=== PATIENT | female | born 1940 | race Caucasian/White ===

== ENCOUNTER 2016-03-23 03:07 | Inpatient (IN) | payer OTHER ==
[~2016-03-23] VITALS: Ht 157.5 cm; Wt 102.6 kg
[2016-03-23] VITALS (20 sets, daily range): BP systolic 102–227; BP diastolic 45–157
[~2016-03-23 03:07] MED LIST: ADVAIR 250/501 DISK IH; ESCITALOPRAM OX10 MG PO; FLEXERIL5 MG PO; FUROSEMIDE40 MG PO; HYDROCODON-ACE1 EAC7 PO; LYRICA25 MG PO; METFORMIN HCL850 MG PO; METOPROLOL SUCC25 MG PO; MOTRIN800 MG PO; OMEPRAZOLE20 MG PO; PREDNISONE20 MG PO; PROAIR HFA8.5 GM IH; SIMVASTATIN40 MG PO; TRADJENTA5 MG PO; VALSARTAN320 MG PO; ZYRTEC10 M3 PO
[2016-03-23 03:48] LABS: BASE EXCESS 11.4 mEq/L (-3 to +3); BICARBONATE 36.4 mEq/L (22-26); CARBOXY HGB 3.1 % (0-5); METHEMOGLOBIN 0.5 % (0-1.5); PO2 88 mm Hg (80-100)
[2016-03-23 03:49] LABS: COMMENTS - BLOOD GASES A+C+; DEVICE NC; O2 FLOW 3 L/MIN; PCO2 50 mm Hg (35-45); SITE LR; pH 7.47 (7.35-7.45)
[2016-03-23 03:59] LABS: HEMATOCRIT 31.8 % (36.0-46.0); MCH 25.2 PG (29.0-34.0); MCHC 29.9 G/DL (30.0-36.0); MCV 84.4 FL (83-99); MEAN PLAT.VOLUME 10.7 uM^3 (9.5-12.4); PLATELET COUNT 340 K/uL (156-360); RBC DIS.WIDTH-CV 16.5 % (11.8-14.6); RBC DIS.WIDTH-SD 49.7 % (39-53); RED BLOOD COUNT 3.77 M/uL (3.80-5.20); WHITE BLOOD COUNT 10.3 K/uL (4.1-10.2)
[2016-03-23 04:03] LABS: EOSINOPHIL (%) 1.8 % (0-5); EOSINOPHIL COUNT 0.2 K/uL (0-0.3); IMMATURE GRANULOCYTE (%) 0.2 % (0.0-0.7); IMMATURE GRANULOCYTE COUNT 0.2 K/uL; LYMPHOCYTE COUNT 1.8 K/uL (1.0-2.8); MONOCYTE (%) 8.3 % (3-12); MONOCYTE COUNT 0.9 K/uL (0-0.8); NEUTROPHIL (%) 72.3 % (45-76); NEUTROPHIL COUNT 7.5 K/uL (1.8-6.4)
[2016-03-23 04:11] LABS: CHLORIDE 100 mEq/L (99-109); POTASSIUM 2.9 mEq/L (3.7-5.4); SODIUM 145 mEq/L (136-147)
[2016-03-23 04:14] LABS: GLUCOSE 125 mg/dL (70-99)
[2016-03-23 04:15] LABS: ANION GAP 15 MEQ/L (2-14)
[2016-03-23 04:16] LABS: TOTAL BILIRUBIN 0.7 mg/dL (0.0-1.0)
[2016-03-23 04:17] LABS: ALKALINE PHOSPHATASE 54 IU/L (3-129); GFR ESTIMATE (CALCULATED) > 59 mL/min/
[2016-03-23 04:18] LABS: UREA NITROGEN (BUN) 10 mg/dL (9-23)
[2016-03-23 04:20] LABS: TROP-I INTERPRETATION NEGATIVE; TROPONIN-I 0.02 ng/mL (0.0-0.30)
[2016-03-23 04:21] LABS: LIPASE 30 U/L (1.0-51.0)
[2016-03-23 05:05] LABS: SALICYLATE < 5.0 MG/DL (15-30)
[2016-03-23 06:21] LABS: BASE EXCESS 9.3 mEq/L (-3 to +3); CARBOXY HGB 1.7 % (0-5); METHEMOGLOBIN 0.7 % (0-1.5); PCO2 54 mm Hg (35-45); PO2 85 mm Hg (80-100); pH 7.42 (7.35-7.45)
[2016-03-23 06:22] LABS: CONTINUOUS POS AIRWAY PRESSURE 5 cm H2O; DEVICE 840 MASK; FI02 40 %; MODE SPONT; PRES. SUPPORT 12 CM/H2O; SITE RR; TOTAL RESP RATE 22 resp/min
[2016-03-23 08:55] LABS: INFLUENZA A VIRAL ANTIGEN NEGATIVE; INFLUENZA B VIRAL ANTIGEN NEGATIVE
[2016-03-23 11:04] LABS: METH RESISTANT S AUREUS PCR POSITIVE (NEGATIVE)
[2016-03-23 11:10] LABS: PROBE CHECK PASS
[2016-03-23 17:16] LABS: POINT-OF-CARE METER ID UU14162636
[2016-03-24] VITALS (24 sets, daily range): BP systolic 104–166; BP diastolic 45–91
[2016-03-24 00:33] LABS: BASE EXCESS 8.9 mEq/L (-3 to +3); BICARBONATE 35.1 mEq/L (22-26); CARBOXY HGB 1.3 % (0-5); COMMENTS - BLOOD GASES C+; DEVICE 840; FI02 100 %; MECHANICAL RATE 15 resp/min; METHEMOGLOBIN 1.1 % (0-1.5); MODE AC; PCO2 58 mm Hg (35-45); PEEP 5 CM/H20; PO2 375 mm Hg (80-100); SITE LR; TIDAL VOLUME 450 ML; TOTAL RESP RATE 15 resp/min; pH 7.39 (7.35-7.45)
[2016-03-24 00:52] LABS: POINT-OF-CARE METER ID UU14162636
[2016-03-24 05:35] LABS: HEMATOCRIT 26.2 % (36.0-46.0); MCH 24.8 PG (29.0-34.0); MCHC 29.4 G/DL (30.0-36.0); MCV 84.5 FL (83-99); PLATELET COUNT 262 K/uL (156-360); RBC DIS.WIDTH-SD 51.9 % (39-53); WHITE BLOOD COUNT 10.4 K/uL (4.1-10.2)
[2016-03-24 05:49] LABS: EOSINOPHIL (%) 3.7 % (0-5); EOSINOPHIL COUNT 0.4 K/uL (0-0.3); IMMATURE GRANULOCYTE (%) 0.3 % (0.0-0.7); LYMPHOCYTE COUNT 1.8 K/uL (1.0-2.8); MONOCYTE (%) 8.1 % (3-12); MONOCYTE COUNT 0.8 K/uL (0-0.8); NEUTROPHIL COUNT 7.3 K/uL (1.8-6.4)
[2016-03-24 05:58] LABS: ANION GAP 11 MEQ/L (2-14); CHLORIDE 102 MEQ/L (99-109); GFR ESTIMATE (CALCULATED) > 59 mL/min/; GLUCOSE 96 mg/dL (70-99); POTASSIUM 2.9 MEQ/L (3.7-5.4); SAMPLE HEMOLYSIS CHECK 0; SAMPLE ICTERIC CHECK 0; SAMPLE LIPEMIA CHECK 0; SODIUM 143 MEQ/L (136-147); UREA NITROGEN (BUN) 8 mg/dL (9-23)
[2016-03-24 06:20] LABS: BASE EXCESS 9.1 mEq/L (-3 to +3); BICARBONATE 34.9 mEq/L (22-26); CARBOXY HGB 1.5 % (0-5); COMMENTS - BLOOD GASES C+; DEVICE 840; FI02 50 %; MECHANICAL RATE 15 resp/min; METHEMOGLOBIN 1.6 % (0-1.5); MODE AC+; PCO2 55 mm Hg (35-45); PO2 99 mm Hg (80-100); PRESSURE CONTROL VENTILATION 18 CM H20; SITE LR; TOTAL RESP RATE 31 resp/min; pH 7.41 (7.35-7.45)
[2016-03-24 06:21] LABS: PEEP 5 CM/H20
[2016-03-24 06:23] LABS: POINT-OF-CARE METER ID UU13113748
[2016-03-24 12:37] LABS: POINT-OF-CARE METER ID UU14162636
[2016-03-24 18:14] LABS: POINT-OF-CARE METER ID UU14162636
[2016-03-24 23:35] LABS: CHLORIDE 107 mEq/L (99-109); POTASSIUM 3.1 mEq/L (3.7-5.4); SODIUM 145 mEq/L (136-147)
[2016-03-24 23:37] LABS: GLUCOSE 100 mg/dL (70-99)
[2016-03-24 23:38] LABS: ANION GAP 9 MEQ/L (2-14)
[2016-03-24 23:41] LABS: GFR ESTIMATE (CALCULATED) > 59 mL/min/
[2016-03-24 23:42] LABS: UREA NITROGEN (BUN) 7 mg/dL (9-23)
[2016-03-25] VITALS (27 sets, daily range): BP systolic 112–173; BP diastolic 46–98
[2016-03-25 00:32] LABS: BASE EXCESS 8.2 mEq/L (-3 to +3); BICARBONATE 33.7 mEq/L (22-26); CARBOXY HGB 2.4 % (0-5); COMMENTS - BLOOD GASES C+; DEVICE 840; FI02 40 %; MECHANICAL RATE 15 resp/min; METHEMOGLOBIN 1.4 % (0-1.5); MODE AC/PC; PCO2 52 mm Hg (35-45); PO2 73 mm Hg (80-100); PRESSURE CONTROL VENTILATION 18 CM H20; SITE LR; TOTAL RESP RATE 27 resp/min; pH 7.42 (7.35-7.45)
[2016-03-25 00:33] LABS: PEEP 5 CM/H20
[2016-03-25 06:23] LABS: HEMATOCRIT 28.8 % (36.0-46.0); MCH 24.8 PG (29.0-34.0); MCHC 29.2 G/DL (30.0-36.0); MEAN PLAT.VOLUME 11.1 uM^3 (9.5-12.4); PLATELET COUNT 246 K/uL (156-360); RBC DIS.WIDTH-CV 17.1 % (11.8-14.6); RBC DIS.WIDTH-SD 52.8 % (39-53); RED BLOOD COUNT 3.39 M/uL (3.80-5.20); WHITE BLOOD COUNT 11.3 K/uL (4.1-10.2)
[2016-03-25 06:35] LABS: EOSINOPHIL (%) 4.9 % (0-5); EOSINOPHIL COUNT 0.6 K/uL (0-0.3); IMMATURE GRANULOCYTE (%) 0.3 % (0.0-0.7); LYMPHOCYTE COUNT 1.3 K/uL (1.0-2.8); MONOCYTE (%) 9.6 % (3-12); MONOCYTE COUNT 1.1 K/uL (0-0.8); NEUTROPHIL (%) 73.6 % (45-76); NEUTROPHIL COUNT 8.3 K/uL (1.8-6.4)
[2016-03-25 06:42] LABS: POINT-OF-CARE METER ID UU13113748; POINT-OF-CARE USER ID LABHNS84
[2016-03-25 06:49] LABS: ANION GAP 8 MEQ/L (2-14); CHLORIDE 104 MEQ/L (99-109); GFR ESTIMATE (CALCULATED) > 59 mL/min/; GLUCOSE 123 mg/dL (70-99); POTASSIUM 3.3 MEQ/L (3.7-5.4); SAMPLE HEMOLYSIS CHECK 0; SAMPLE ICTERIC CHECK 0; SAMPLE LIPEMIA CHECK 0; SODIUM 143 MEQ/L (136-147); UREA NITROGEN (BUN) 6 mg/dL (9-23)
[2016-03-25] MEDS ORDERED: LYRICA75 MG PO (15:30)
[2016-03-25] MEDS ORDERED: ADVAIR 250/501 DISK IH (15:30)
[2016-03-25] MEDS ORDERED: METFORMIN HCL850 MG PO (15:31)
[2016-03-25] MEDS ORDERED: LEVOFLOXACIN500 MG PO (15:32)
[2016-03-25] MEDS ORDERED: CYCLOBENZAPRINE5 MG PO (15:33)
[2016-03-25] MEDS ORDERED: FUROSEMIDE40 MG PO (15:34)
[2016-03-25] MEDS ORDERED: SIMVASTATIN40 MG PO (15:34)
[2016-03-25] MEDS ORDERED: IBUPROFEN800 MG PO (15:34)
[2016-03-25] MEDS ORDERED: VENTOLIN HFA18 GM IH (15:37)
[2016-03-25] MEDS ORDERED: OMEPRAZOLE20 MG PO (15:39)
[2016-03-25] MEDS ORDERED: METOPROLOL SUCC25 MG PO (15:39)
[2016-03-25] MEDS ORDERED: VALSARTAN320 MG PO (15:39)
[2016-03-25] MEDS ORDERED: ZYRTEC10 M2 PO (15:40)
[2016-03-25] MEDS ORDERED: ESCITALOPRAM OX10 MG PO (15:40)
[2016-03-25] MEDS ORDERED: TRADJENTA5 MG PO (15:41)
[2016-03-25] MEDS ORDERED: FLEXERIL5 MG PO (15:42)
[2016-03-26] VITALS (25 sets, daily range): BP systolic 129–170; BP diastolic 54–94
[2016-03-26 01:00] LABS: POINT-OF-CARE USER ID LABHNS84
[2016-03-26 06:13] LABS: HEMATOCRIT 30.3 % (36.0-46.0); MCH 24.8 PG (29.0-34.0); MCHC 29.4 G/DL (30.0-36.0); MCV 84.4 FL (83-99); MEAN PLAT.VOLUME 11.8 uM^3 (9.5-12.4); PLATELET COUNT 242 K/uL (156-360); RBC DIS.WIDTH-CV 16.8 % (11.8-14.6); RBC DIS.WIDTH-SD 51.2 % (39-53); RED BLOOD COUNT 3.59 M/uL (3.80-5.20)
[2016-03-26 06:36] LABS: EOSINOPHIL (%) 0.1 % (0-5); IMMATURE GRANULOCYTE (%) 0.5 % (0.0-0.7); LYMPHOCYTE COUNT 0.8 K/uL (1.0-2.8); MONOCYTE (%) 2.6 % (3-12); MONOCYTE COUNT 0.2 K/uL (0-0.8); NEUTROPHIL (%) 87.2 % (45-76)
[2016-03-26 07:05] LABS: ANION GAP 10 MEQ/L (2-14); CHLORIDE 102 MEQ/L (99-109); GFR ESTIMATE (CALCULATED) > 59 mL/min/; POTASSIUM 3.5 MEQ/L (3.7-5.4); SAMPLE HEMOLYSIS CHECK 0; SAMPLE ICTERIC CHECK 0; SAMPLE LIPEMIA CHECK 0; SODIUM 144 MEQ/L (136-147); UREA NITROGEN (BUN) 11 mg/dL (9-23)
[2016-03-26 07:10] LABS: GLUCOSE 216 mg/dL (70-99)
[2016-03-26 07:58] LABS: POINT-OF-CARE METER ID UU13113803
[2016-03-26 11:37] LABS: POINT-OF-CARE METER ID UU13113803
[2016-03-26 17:24] LABS: POINT-OF-CARE METER ID UU13113803
[2016-03-26 23:52] LABS: POINT-OF-CARE METER ID UU13113803; POINT-OF-CARE USER ID LABHNS84
[2016-03-27] VITALS (26 sets, daily range): BP systolic 137–177; BP diastolic 55–90
[2016-03-27 06:19] LABS: POINT-OF-CARE METER ID UU13113731; POINT-OF-CARE USER ID LABHNS84
[2016-03-27 06:24] LABS: HEMATOCRIT 27.2 % (36.0-46.0); MCH 25.3 PG (29.0-34.0); MCHC 30.5 G/DL (30.0-36.0); MCV 82.9 FL (83-99); MEAN PLAT.VOLUME 11.5 uM^3 (9.5-12.4); PLATELET COUNT 259 K/uL (156-360); RBC DIS.WIDTH-CV 16.5 % (11.8-14.6); RBC DIS.WIDTH-SD 50.2 % (39-53); RED BLOOD COUNT 3.28 M/uL (3.80-5.20); WHITE BLOOD COUNT 9.9 K/uL (4.1-10.2)
[2016-03-27 06:45] LABS: EOSINOPHIL (%) 0 % (0-5); IMMATURE GRANULOCYTE (%) 0.4 % (0.0-0.7); LYMPHOCYTE COUNT 1.2 K/uL (1.0-2.8); MONOCYTE (%) 7.6 % (3-12); MONOCYTE COUNT 0.8 K/uL (0-0.8); NEUTROPHIL (%) 80.2 % (45-76); NEUTROPHIL COUNT 7.9 K/uL (1.8-6.4)
[2016-03-27 12:50] LABS: POINT-OF-CARE METER ID UU13113803
[2016-03-27 18:02] LABS: POINT-OF-CARE METER ID UU14162636
[2016-03-28] VITALS (26 sets, daily range): BP systolic 115–160; BP diastolic 49–83
[2016-03-28 01:26] LABS: POINT-OF-CARE METER ID UU13113803
[2016-03-28 05:01] LABS: GFR ESTIMATE (CALCULATED) > 59 mL/min/
[2016-03-28 05:36] LABS: POINT-OF-CARE METER ID UU14162636
[2016-03-28 06:32] LABS: VANCOMYCIN, TROUGH 21.6 MCG/ML (10-20)
[2016-03-28 08:26] LABS: BASE EXCESS 5.3 mEq/L (-3 to +3); BICARBONATE 31.6 mEq/L (22-26); CARBOXY HGB 1.7 % (0-5); COMMENTS - BLOOD GASES A+C+; METHEMOGLOBIN 1.3 % (0-1.5); PCO2 56 mm Hg (35-45); PO2 76 mm Hg (80-100); SITE RR; pH 7.36 (7.35-7.45)
[2016-03-28 08:27] LABS: DEVICE VENT; FI02 40 %; MECHANICAL RATE 16 resp/min; MODE AC; PEEP 5 CM/H20; PRES. SUPPORT 15 CM/H2O; TIDAL VOLUME 400 ML; TOTAL RESP RATE 16 resp/min
[2016-03-28 08:47] LABS: HEMATOCRIT 29.7 % (36.0-46.0); MCH 24.9 PG (29.0-34.0); MCHC 29.3 G/DL (30.0-36.0); MCV 84.9 FL (83-99); MEAN PLAT.VOLUME 12.5 uM^3 (9.5-12.4); PLATELET COUNT 287 K/uL (156-360); RBC DIS.WIDTH-SD 52.9 % (39-53); WHITE BLOOD COUNT 11.4 K/uL (4.1-10.2)
[2016-03-28 09:01] LABS: ANION GAP 13 MEQ/L (2-14); CHLORIDE 101 MEQ/L (99-109); SAMPLE HEMOLYSIS CHECK 0; SAMPLE ICTERIC CHECK 0; SAMPLE LIPEMIA CHECK 0; SODIUM 143 MEQ/L (136-147); TOTAL BILIRUBIN 0.5 MG/DL (0.0-1.0)
[2016-03-28 09:03] LABS: EOSINOPHIL (%) 0 % (0-5); IMMATURE GRANULOCYTE (%) 1.1 % (0.0-0.7); IMMATURE GRANULOCYTE COUNT 0.1 K/uL; LYMPHOCYTE COUNT 1.4 K/uL (1.0-2.8); MONOCYTE (%) 7.6 % (3-12); MONOCYTE COUNT 0.9 K/uL (0-0.8); NEUTROPHIL (%) 79.1 % (45-76)
[2016-03-28 09:24] LABS: ALKALINE PHOSPHATASE 55 IU/L (3-129); GLUCOSE 249 mg/dL (70-99)
[2016-03-28 09:32] LABS: UREA NITROGEN (BUN) 25 mg/dL (9-23)
[2016-03-28 11:13] LABS: POINT-OF-CARE METER ID UU14162636
[2016-03-28 22:19] LABS: POINT-OF-CARE USER ID LABHNS84
[2016-03-29] VITALS (24 sets, daily range): BP systolic 118–174; BP diastolic 45–89
[2016-03-29 01:50] LABS: POINT-OF-CARE USER ID LABHNS84
[2016-03-29 05:25] LABS: POINT-OF-CARE USER ID LABHNS84
[2016-03-29 05:29] LABS: HEMATOCRIT 28.9 % (36.0-46.0); MCH 24.3 PG (29.0-34.0); MCHC 29.1 G/DL (30.0-36.0); MCV 83.8 FL (83-99); MEAN PLAT.VOLUME 11.8 uM^3 (9.5-12.4); PLATELET COUNT 280 K/uL (156-360); RBC DIS.WIDTH-SD 51.9 % (39-53); RED BLOOD COUNT 3.45 M/uL (3.80-5.20); WHITE BLOOD COUNT 10.2 K/uL (4.1-10.2)
[2016-03-29 06:13] LABS: ANION GAP 6 MEQ/L (2-14); CHLORIDE 103 MEQ/L (99-109); GFR ESTIMATE (CALCULATED) > 59 mL/min/; GLUCOSE 209 mg/dL (70-99); MAGNESIUM 2.2 mg/dl (1.3-2.7); POTASSIUM 4.3 MEQ/L (3.7-5.4); SAMPLE HEMOLYSIS CHECK 0; SAMPLE ICTERIC CHECK 0; SAMPLE LIPEMIA CHECK 0; SODIUM 139 MEQ/L (136-147); UREA NITROGEN (BUN) 25 mg/dL (9-23)
[2016-03-29 09:26] LABS: POINT-OF-CARE METER ID UU13113803
[2016-03-29 15:17] LABS: POINT-OF-CARE METER ID UU14162636
[2016-03-29 18:48] LABS: POINT-OF-CARE METER ID UU14162636
[2016-03-29 22:55] LABS: POINT-OF-CARE METER ID UU14162636; POINT-OF-CARE USER ID LABHNS84
[2016-03-30] VITALS (14 sets, daily range): BP systolic 104–147; BP diastolic 41–72
[2016-03-30 01:35] LABS: POINT-OF-CARE METER ID UU14162636
[2016-03-30 04:04] LABS: HEMATOCRIT 28.9 % (36.0-46.0); MCH 24.6 PG (29.0-34.0); MCHC 29.4 G/DL (30.0-36.0); MCV 83.8 FL (83-99); MEAN PLAT.VOLUME 11.1 uM^3 (9.5-12.4); PLATELET COUNT 321 K/uL (156-360); RBC DIS.WIDTH-CV 16.8 % (11.8-14.6); RBC DIS.WIDTH-SD 49.6 % (39-53); RED BLOOD COUNT 3.45 M/uL (3.80-5.20)
[2016-03-30 04:05] LABS: WHITE BLOOD COUNT 13.3 K/uL (4.1-10.2)
[2016-03-30 04:10] LABS: CHLORIDE 106 mEq/L (99-109); POTASSIUM 5.1 mEq/L (3.7-5.4); SODIUM 139 mEq/L (136-147)
[2016-03-30 04:11] LABS: MAGNESIUM 2.4 mg/dL (1.3-2.7)
[2016-03-30 04:12] LABS: GLUCOSE 212 mg/dL (70-99)
[2016-03-30 04:13] LABS: ANION GAP 7 MEQ/L (2-14)
[2016-03-30 04:16] LABS: GFR ESTIMATE (CALCULATED) > 59 mL/min/
[2016-03-30 04:17] LABS: UREA NITROGEN (BUN) 29 mg/dL (9-23)
[2016-03-30 05:25] LABS: POINT-OF-CARE METER ID UU14162636
[2016-03-30 09:53] LABS: POINT-OF-CARE METER ID UU14162636
[2016-03-31] VITALS: BP 140/66
[2016-03-31 02:00] VITALS: BP 148/65
[2016-03-31 06:39] VITALS: BP 116/53
[2016-03-31 08:00] VITALS: BP 132/57
[2016-03-31 12:00] VITALS: BP 130/58
[2016-04-01 08:31] VITALS: BP 155/88
[2016-04-02 08:59] VITALS: BP 00/00
== END 2016-04-02 10:13 | DRG 207 ==
LOC: EME → EDBD 03:07 → EME 03:07 → EDOF 07:50 → 4WEST 07:50 → 5EAST 03-31 14:27
PROVIDERS: Emergency Medicine; Internal Medicine Critical Care Medicine; Internal Medicine Pulmonary Disease; Surgery
DX: J96.22 Acute and chronic respiratory failure with hypercapnia (principal); J96.21 Acute and chronic respiratory failure with hypoxia; J44.0 Chronic obstructive pulmonary disease with (acute) lower respiratory infection; J15.9 Unspecified bacterial pneumonia; J44.1 Chronic obstructive pulmonary disease with (acute) exacerbation; E87.3 Alkalosis; E87.0 Hyperosmolality and hypernatremia; Z99.81 Dependence on supplemental oxygen; Z51.5 Encounter for palliative care; L25.9 Unspecified contact dermatitis, unspecified cause; E87.6 Hypokalemia; E11.9 Type 2 diabetes mellitus without complications; E66.9 Obesity, unspecified; Z68.41 Body mass index [BMI] 40.0-44.9, adult; I10 Essential (primary) hypertension; J45.909 Unspecified asthma, uncomplicated; K21.9 Gastro-esophageal reflux disease without esophagitis; I25.10 Atherosclerotic heart disease of native coronary artery without angina pectoris; E78.5 Hyperlipidemia, unspecified; Z87.891 Personal history of nicotine dependence; Z78.1 Physical restraint status
CPT/HCPCS: 36600; 71010; 80048; 80048 91; 80053; 80202; 82565; 82803; 82948; 83605; 83690; 83735; 83880; 84100; 84132 91; 84484; 85025; 85025 91; 85027; 87040; 87070; 87077; 87147; 87186; 87205; 87502; 87641; 93005; 94002; 94003; 94640; 94640 76; 94644; 94799; 99202; 99281; 99285; G0480; J0330; J0360; J0456; J1120; J1630; J1650; J1815; J1940; J1956; J2060; J2270; J2704; J2920; J3010; J3370; J3480; J7030; J7644

== ENCOUNTER 2016-04-02 10:10 | Inpatient (IN) | payer OTHER ==
[~2016-04-02 10:10] MED LIST changes: +CYCLOBENZAPRINE5 MG PO; +IBUPROFEN800 MG PO; +LEVOFLOXACIN500 MG PO; +LYRICA75 MG PO; +VENTOLIN HFA18 GM IH; +ZYRTEC10 M2 PO
[2016-04-03 04:26] VITALS: BP 00/00
== END 2016-04-04 07:25 | DRG 189 ==
LOC: 5EAST 10:10
DX: J96.22 Acute and chronic respiratory failure with hypercapnia (principal); J18.9 Pneumonia, unspecified organism; F33.9 Major depressive disorder, recurrent, unspecified; J44.1 Chronic obstructive pulmonary disease with (acute) exacerbation; Z51.5 Encounter for palliative care; Z66 Do not resuscitate; J96.21 Acute and chronic respiratory failure with hypoxia; I25.10 Atherosclerotic heart disease of native coronary artery without angina pectoris; E11.9 Type 2 diabetes mellitus without complications; I10 Essential (primary) hypertension; K21.9 Gastro-esophageal reflux disease without esophagitis; G89.3 Neoplasm related pain (acute) (chronic); Z99.81 Dependence on supplemental oxygen; Z88.0 Allergy status to penicillin
CPT/HCPCS: 94799; J2060; J2270